=== PATIENT | female | born 1980 ===

== ENCOUNTER 2017-07-01 10:19 | Emergency (ER) | payer BC ==
[2017-07-01 10:25] VITALS: BMI 36.6
[2017-07-01 10:28] VITALS: RESP 18; TEMP 97.9
[2017-07-01] MEDS ORDERED: Naproxen 550 mg Tab PO STA (11:05)
[2017-07-01] MEDS ORDERED: Naproxen 550 mg Tab PO ONE (11:39)
[2017-07-01 11:51] LABS: HCG,QUALITATIVE URINE NEGATIVE (NEGATIVE)
[2017-07-01 12:00] LABS: SQUAMOUS EPITHIAL 11 /hpf (0-5); URINE BACTERIA MOD (<OCC); URINE BILIRUBIN NEGATIVE (NEGATIVE); URINE BLOOD NEGATIVE (NEGATIVE); URINE CLARITY Hazy (Clear); URINE COLOR Yellow (YELLOW); URINE GLUCOSE (UA) 2+ mg/dL (Normal); URINE LEUKOCYTE ESTERASE NEG Leu/uL (Negative); URINE NITRATE NEGATIVE (NEGATIVE); URINE PROTEIN NEGATIVE (NEGATIVE); URINE UROBILINOGEN NORMAL mg/dL (0.2-1.0)
--- NOTE | 2017-07-01 12:06 | C.PDOC ---
History Of Present Illness Pt c/o left lower back pain. Denies injury. Time Seen by Provider: 07/01/17 10:59 Chief Complaint (Nursing): Back Pain History Per: Patient Onset/Duration Of Symptoms: Days (4) Current Symptoms Are (Timing): Still Present Quality Of Discomfort: "Pain" Severity: Moderate Associated Symptoms: None Exacerbating Factor(s): Turning, Movement Additional History Per: Prior Records Past Medical History Reviewed: Historical Data, Nursing Documentation, Vital Signs Vital Signs: Last Vital Signs Temp 97.9 F 07/01/17 10:25 Pulse 91 H 07/01/17 10:25 Resp 18 07/01/17 10:25 BP 139/96 H 07/01/17 10:25 Pulse Ox 99 07/01/17 10:25 - Medical History PMH: Diabetes - [facility] Procedures TETANUS TOXOID ADMINIST (10/21/11) Family History: States: Unknown Family Hx - Social History Hx Tobacco Use: Yes Hx Alcohol Use: Yes Hx Substance Use: No - Immunization History Hx Tetanus Toxoid Vaccination: No Hx Influenza Vaccination: No Hx Pneumococcal Vaccination: No Review Of Systems Except As Marked, All Systems Reviewed And Found Negative. Constitutional: Negative for: Fever, Weakness Cardiovascular: Negative for: Chest Pain Respiratory: Negative for: Shortness of Breath Gastrointestinal: Negative for: Vomiting, Abdominal Pain, Diarrhea Genitourinary: Negative for: Dysuria, Hematuria Musculoskeletal: Positive for: Back Pain. Negative for: Neck Pain, Leg Pain Skin: Negative for: Rash Neurological: Negative for: Weakness, Numbness Physical Exam - Physical Exam Appears: Non-toxic, No Acute Distress Skin: Normal Color, Warm, Dry, No Rash Head: Atraumatic, Normacephalic Eye(s): bilateral: Normal Inspection, PERRL, EOMI Neck: Normal ROM, Supple Cardiovascular: Rhythm Regular Respiratory: Normal Breath Sounds, No Accessory Muscle Use Gastrointestinal/Abdominal: Soft, No Tenderness Back: No CVA Tenderness, No Vertebral Tenderness, Paraspinal Tenderness (left lower) Extremity: Normal ROM Neurological/Psych: Oriented x3, Normal Motor, Normal Sensation ED Course And Treatment - Laboratory Results Urine POC: Negative O2 Sat by Pulse Oximetry: 99 Pulse Ox Interpretation: Normal Reassessment Condition: Improved Disposition Counseled Patient/Family Regarding: Studies Performed, Diagnosis, Need For Followup, Rx Given - Disposition Referrals: Norma Juares MD [Medical Doctor] - Disposition: HOME/ ROUTINE Disposition Time: 12:08 Condition: IMPROVED Additional Instructions: Follow up with your doctor for further evaluation and treatment. Return to the ER if you develop weakness, numbness, trouble urinating, abdominal pain, worsening of symptoms or if you have any other concerns. Prescriptions: Cyclobenzaprine [Cyclobenzaprine HCl] 10 mg PO TID PRN #15 tab PRN Reason: Muscle Spasm Naproxen [Naprosyn] 1 tab PO BID PRN #20 tab PRN Reason: Pain Instructions: Low Back Pain (DC) - Clinical Impression Clinical Impression: Left low back pain
[2017-07-01 12:16] VITALS: BP 134/93; PULSE 87; O2SAT 95
== END 2017-07-01 12:16 | disposition home or self-care (01) ==
LOC: C.ER 10:19
DX: M54.5 Low back pain (principal)